=== PATIENT | female | born 1980 | race Hispanic/Latino ===

== ENCOUNTER 2020-02-12 23:08 | Emergency (ER) | payer BC ==
[~2020-02-12 23:08] MED LIST: PNV1TABL17 PO
[2020-02-12] MEDS ORDERED: ONDANSETRON HCL 4 MG/2 ML VIAL ONE (23:24)
[2020-02-12] MEDS ORDERED: MORPHINE SULFATE 4 MG/1ML SYG ONE (23:25)
[2020-02-12 23:47] LABS: BASOPHILS % (AUTO) 0.6 % (0.0-5.0); EOSINOPHILS % (AUTO) 3.1 % (0.0-8.0); LYMPHOCYTES % (AUTO) 32.2 % (21.0-51.0); MEAN CORPUSCULAR HEMOGLOBIN 28.2 pg (27.0-33.0); MEAN CORPUSCULAR HGB CONC 33.5 g/dL (32.0-36.0); MEAN CORPUSCULAR VOLUME 84.2 fL (79-99); MONOCYTES % (AUTO) 6.7 % (3.0-13.0); NEUTROPHILS % (AUTO) 57.1 % (40.0-77.0); PLATELET COUNT (AUTO) 338 K/uL (130-400); RED BLOOD CELL COUNT(AUTO) 4.75 MIL/uL (4.00-5.50); WHITE BLOOD COUNT (AUTO) 13.6 K/uL (4.8-10.8)
[2020-02-12] MEDS ORDERED: MORPHINE SULFATE 2 MG/ML 1ML SYG ONE (23:48)
[2020-02-13] MEDS ORDERED: NEOSTIGMINE 5MG/5ML SYR IV ONE (15:49)
[2020-02-13] MEDS ORDERED: DEXAMETHASONE SOD PHOSPHATE 10MG/ML 1ML VIAL ONE (15:49)
[2020-02-13] MEDS ORDERED: ONDANSETRON HCL 4 MG/2 ML VIAL ONE (15:49)
[2020-02-13] MEDS ORDERED: GLYCOPYRROLATE 1 MG/5 ML SYRINGE ONE (15:49)
[2020-02-13] MEDS ORDERED: LIDOCAINE PF 2% 5ML ABBOJECT ONE (15:49)
[2020-02-13] MEDS ORDERED: MIDAZOLAM HCL 1 MG/ML 2ML VIAL ONE (15:49)
[2020-02-13] MEDS ORDERED: PROPOFOL 10 MG/ML 20ML VIAL IV ONE (15:49)
[2020-02-13] MEDS ORDERED: FENTANYL CITRATE PF 50 MCG/1 ML 2ML VIAL ONE (15:50)
[2020-02-13] MEDS ORDERED: ROCURONIUM 10MG/1ML SYR 10 MG/ML ML ONE (15:50)
== END 2020-02-13 01:11 | disposition home or self-care (01) ==
LOC: EDH 23:08
DX: O20.0 Threatened abortion (principal); Z3A.01 Less than 8 weeks gestation of pregnancy; Z98.890 Other specified postprocedural states
CPT/HCPCS: 36415; 76801; 84702; 85025; 86900; 86901; 96374; 96375; 99284; J1100; J2001; J2250; J2270; J2405 ×2; J2704; J2710; J3010; J3490

== ENCOUNTER 2020-02-13 16:21 | Observation (INO) | payer BC ==
[~2020-02-13] VITALS: Ht 157.5 cm; Wt 72.6 kg
[2020-02-13] VITALS (28 sets, daily range): BP systolic 99–129; BP diastolic 53–72
[2020-02-13] MEDS ORDERED: PHARMACY COMMUNICATION MISC SCH (16:30)
--- NOTE | 2020-02-13 16:45 | NUR ---
PATIENT ARRIVED TO UNIT VIA WHEELCHAIR FROM ER REGISTRATION. CONSENT REVIEWED AND SIGNED.
--- NOTE | 2020-02-13 17:02 | NUR ---
PATIENT TAKEN TO [facility] FOR D&C AND REMOVAL OF CERCLAGE BY [facility].
[2020-02-13 17:09] LABS: HEMATOCRIT 39.7 % (36-48); MEAN CORPUSCULAR HEMOGLOBIN 28.9 pg (27.0-33.0); MEAN CORPUSCULAR HGB CONC 33.2 g/dL (32.0-36.0); MEAN CORPUSCULAR VOLUME 86.9 fL (79-99); RED BLOOD CELL COUNT(AUTO) 4.57 MIL/uL (4.00-5.50); RED CELL DISTRIBUTION WIDTH 13.2 % (11.0-15.5); WHITE BLOOD COUNT (AUTO) 14.4 K/uL (4.8-10.8)
[2020-02-13] MEDS ORDERED: CEFTRIAXONE SODIUM 1 GM ONE ×2 (17:19)
[2020-02-13] MEDS ORDERED: MIDAZOLAM HCL 1 MG/ML 2ML VIAL ONE (17:31)
[2020-02-13] MEDS ORDERED: FENTANYL CITRATE PF 50 MCG/1 ML 2ML VIAL ONE (17:36)
[2020-02-13] MEDS ORDERED: OXYTOCIN 10 USP UNITS/ML ONE (17:47)
--- NOTE | 2020-02-13 17:52 | NUR ---
DR. CASSIDY CALLED AND STATES PATIENT CLEAR TO BE DISCHARGED TONIGHT.
[2020-02-13] MEDS ORDERED: CEFTRIAXONE SODIUM 2 GM VIAL IVP ONE (18:00)
[2020-02-13] MEDS ORDERED: ONDANSETRON HCL 4 MG/2 ML VIAL ONE (19:06)
--- NOTE | 2020-02-13 22:00 | NUR ---
PT. TOLERATED SANDWICH, JUICE AND WATER. DENIED N/V. INST PT TO GET UP WITH ASSIST TO VOID; PT. SAID SHE DID NOT FEEL THE URGE TO URINATE. ALSO C/O HER BOTH LEGS NUMBNESS; SAID SHE WAS ABLE TO FEEL HER FEET ONLY. BLADDER PALPATED AND SOFT TO TOUCH. PULSES ON BOTH FEET SOFT TO TOUCH. Addendum: 02/14/20 at 0102 by RICHIE BARRETT RN RN Amended: Links added.
--- NOTE | 2020-02-13 23:05 | NUR ---
WENT IN TO ASSIST PT. OUT OF BED TO BR, PT URINATED ON THE FLOOR WHILE STANDING . SHAWN PAD AND BED PAD WITH URINE NOTED. PT. UNABLE TO WALK AND ASSIST. BACK IN BED. Addendum: 02/14/20 at 0107 by RICHIE BARRETT RN RN Amended: Links added.
--- NOTE | 2020-02-13 23:40 | NUR ---
PT. STILL UNABL TO AMBULATE WITH ASSIST TO BR; BED SIDE COMMODE OFFERED AND PT. VOIDED IN BSC AND BACK TO BED WITH ASSIST. PT. INST THAT WILL BE NOTIFIED ABOUT HER INABILITY TO AMBULATE. PEDAL PULSES REMAIN STRONG AND PALPABLE. BAND AID TO BACK CLEAN DRY AND INTACT. Addendum: 02/14/20 at 0112 by RICHIE BARRETT RN RN Amended: Links added.
--- NOTE | 2020-02-13 23:50 | NUR ---
DR. PRUITT CALLED AND NOTIFIED OF PT'S BOTH LEGS NUMBNESS AND INABILITY TO AMBULATE; ORDERS NOTED TO KEEP PT. OVERNIGHT. MD ALSO ORDERED PAIN MEDICATION NEEDED. PT. AND SPOUSE NOTIFIED OF MD'S ORDERS. PT. INST TO CALL FOR ASSIST BEFORE GETTING OUT OF BED, VERBALIZED UNDERSTANDING.
[2020-02-14] MEDS ORDERED: ACETAMINOPHEN-CODEINE 300/30MG TAB PO PRN
[2020-02-14 00:07] VITALS: BP 113/68
--- NOTE | 2020-02-14 00:07 | NUR ---
PT. RESTING QUIETLY IN BED, VS REMAIN STABLE. DENIED PAIN AND DISCOMFORT.
[2020-02-14] MEDS: LACTATED RINGERS 1000ML 1,000 ML IV SCH ×2 (00:30→07:37)
[2020-02-14 03:30] VITALS: BP 107/65
[2020-02-14 07:40] VITALS: BP 105/66
--- NOTE | 2020-02-14 09:43 | NUR ---
pt is dismissed in stable condition, brought to private car via wheelchair by Deedee Quinn [employer] tech Addendum: 02/14/20 at 0945 by FIDELINA NICKERSON RN Amended: Links added.
== END 2020-02-14 09:45 | disposition home or self-care (01) ==
LOC: WSH 16:21
DX: O03.87 Sepsis following complete or unspecified spontaneous abortion (principal); A41.9 Sepsis, unspecified organism
CPT/HCPCS: 36415 ×2; 59830; 76801; 84702; 85025; 85027; 86900; 86901; 87070; 87076; 96374; 96375; 99284; A4222; A4223; A4351; G0378 ×9; J0696 ×3; J1100; J2001; J2250 ×2; J2270; J2405 ×3; J2590; J2704; J2710; J3010 ×2; J3490; J7030; J7120

== ENCOUNTER 2023-03-16 02:19 | Observation (INO) | payer BC ==
[~2023-03-16] VITALS: Ht 157.5 cm; Wt 68.5 kg
[2023-03-16 04:00] LABS: APPEARANCE,URINE CLEAR (CLEAR); BILIRUBIN,URINE NEGATIVE (NEGATIVE); COLOR,URINE YELLOW (YELLOW); GLUCOSE, URINE (UA) NEGATIVE (NEGATIVE); KETONES,URINE 40 mg/dL (NEGATIVE); LEUKOCYTE ESTERASE ,URINE NEGATIVE Leu/uL (NEGATIVE); NITRATE,URINE NEGATIVE (NEGATIVE); OCCULT BLOOD,URINE MODERATE (NEGATIVE); PH,URINE 5.5 (5.0-8.0); PROTEIN,URINE 10 mg/dL (NEGATIVE)
[2023-03-16] MEDS ORDERED: LACTATED RINGERS 1000ML 1,000 ML IV ONE (04:00)
[2023-03-16] MEDS ORDERED: ONDANSETRON 4MG INJ IVP ONE (04:00)
[2023-03-16] MEDS ORDERED: MORPHINE 4 MG SYG IVP ONE (04:00)
[2023-03-16 04:07] LABS: HCG,QUALITATIVE URINE NEGATIVE (NEGATIVE); MUCUS,URINE RARE LPF (None Seen); SQUAMOUS EPITHELIAL CELL,UR RARE /HPF (0-2)
[2023-03-16 04:22] LABS: BASOPHILS % (AUTO) 0.3 % (0.0-5.0); EOSINOPHILS % (AUTO) 0.6 % (0.0-8.0); HEMATOCRIT 33.7 % (36-48); MEAN CORPUSCULAR HEMOGLOBIN 28.1 pg (27.0-33.0); MEAN CORPUSCULAR HGB CONC 33.5 g/dL (32.0-36.0); MEAN CORPUSCULAR VOLUME 83.8 fL (79-99); MONOCYTES % (AUTO) 14.2 % (3.0-13.0); PLATELET COUNT (AUTO) 292 K/uL (130-400); RED BLOOD CELL COUNT(AUTO) 4.02 MIL/uL (4.00-5.50); RED CELL DISTRIBUTION WIDTH 13.3 % (11.0-15.5); WHITE BLOOD COUNT (AUTO) 19.8 K/uL (4.8-10.8)
[2023-03-16 04:37] LABS: ALBUMIN 3.4 g/dL (3.5-5.0); CREATININE 0.7 mg/dL (0.5-1.5); POTASSIUM 3.7 mmol/L (3.5-5.1); TOTAL PROTEIN, SERUM 7.3 g/dL (6.0-8.3)
[2023-03-16] MEDS ORDERED: IOHEXOL-350 75 ML VIAL IV ONE (05:10)
[2023-03-16] MEDS ORDERED: KETOROLAC 30MG VIAL (30MG/ML) IVP ONE (06:00)
[2023-03-16 06:09] LABS: INR 1.05 (0.85-1.15); PROTHROMBIN TIME 11.4 SEC (9.6-11.6)
[2023-03-16 06:10] LABS: PARTIAL THROMBOPLASTIN TIME 38.8 SEC (26.3-35.5)
[2023-03-16] MEDS ORDERED: CIPR500T10 PO (09:06)
[2023-03-16] MEDS ORDERED: CEFTRIAXONE 2GM VIAL IVPB ONE (09:30)
[2023-03-16] MEDS ORDERED: CEFTRIAXONE 1G VIAL IVPB SCH (09:30)
[2023-03-16] MEDS ORDERED: ACETAMINOPHEN 325 MG TAB PO PRN (09:30)
[2023-03-16] MEDS ORDERED: ONDANSETRON 4MG INJ IVP PRN (09:30)
[2023-03-16] MEDS: 0.9%NACL 1000ML 1,000 ML IV SCH (10:16)
[2023-03-16] MEDS: KETOROLAC 15MG/ML VIAL (15MG/ML) IV PRN (19:01)
[2023-03-16 19:02] VITALS: BP 116/73
[2023-03-16] MEDS: FAMOTIDINE 20MG TAB PO SCH (21:02)
[2023-03-16 22:30] VITALS: BP 102/57
[2023-03-17] VITALS (10 sets, daily range): BP systolic 113–152; BP diastolic 70–103
[2023-03-17] MEDS: ACETAMINOPHEN 325 MG TAB PO PRN ×2 (00:28→15:16)
[2023-03-17] MEDS: 0.9%NACL 1000ML 1,000 ML IV SCH ×2 (01:03→18:01)
[2023-03-17 06:44] LABS: BASOPHILS % (AUTO) 0.4 % (0.0-5.0); HEMATOCRIT 27.8 % (36-48); LYMPHOCYTES % (AUTO) 25.1 % (21.0-51.0); MEAN CORPUSCULAR HEMOGLOBIN 28.1 pg (27.0-33.0); MEAN CORPUSCULAR HGB CONC 32.7 g/dL (32.0-36.0); MEAN CORPUSCULAR VOLUME 85.8 fL (79-99); MONOCYTES % (AUTO) 8.8 % (3.0-13.0); NEUTROPHILS % (AUTO) 63.2 % (40.0-77.0); PLATELET COUNT (AUTO) 251 K/uL (130-400); RED BLOOD CELL COUNT(AUTO) 3.24 MIL/uL (4.00-5.50); RED CELL DISTRIBUTION WIDTH 13.9 % (11.0-15.5); WHITE BLOOD COUNT (AUTO) 9.9 K/uL (4.8-10.8)
[2023-03-17 07:23] LABS: ALBUMIN 2.4 g/dL (3.5-5.0); CREATININE 0.7 mg/dL (0.5-1.5); POTASSIUM 3.4 mmol/L (3.5-5.1); TOTAL PROTEIN, SERUM 6.3 g/dL (6.0-8.3)
[2023-03-17] MEDS ORDERED: MORPHINE 2 MG SYG IVP PRN (07:30)
[2023-03-17] MEDS ORDERED: CEFTRIAXONE 1G VIAL 1 GM in 0.9%NACL 50ML 50 ML IV SCH (09:00)
[2023-03-17] MEDS: SIMETHICONE 80 MG TAB.CHEW PO PRN ×2 (09:22→20:59)
[2023-03-17] MEDS: CEFTRIAXONE 2GM VIAL IVPB SCH (09:22)
[2023-03-17] MEDS: FAMOTIDINE 20MG TAB PO SCH ×2 (09:23→20:59)
[2023-03-17] MEDS: DOCUSATE SODIUM 100 MG CAP PO SCH ×2 (09:23→20:59)
[2023-03-17] MEDS: BISACODYL 10 MG SUPP.RECT RC PRN (09:25)
[2023-03-17] MEDS: KETOROLAC 15MG/ML VIAL (15MG/ML) IV PRN (11:14)
[2023-03-18] MEDS ORDERED: LACTULOSE 20 GM/30 ML UDCUP PO ONE
[2023-03-18 00:18] VITALS: BP 153/99
[2023-03-18] MEDS ORDERED: FUROSEMIDE 20 MG TABLET PO ONE (00:30)
[2023-03-18] MEDS ORDERED: LORAZEPAM 1 MG TABLET PO ONE (00:30)
[2023-03-18 00:48] VITALS: BP 145/96
[2023-03-18] MEDS: 0.9%NACL 1000ML 1,000 ML IV SCH (01:30)
[2023-03-18 03:42] VITALS: BP 139/82
[2023-03-18 04:03] LABS: BASOPHILS % (AUTO) 0.5 % (0.0-5.0); EOSINOPHILS % (AUTO) 2.2 % (0.0-8.0); HEMATOCRIT 28.3 % (36-48); MEAN CORPUSCULAR HEMOGLOBIN 27.9 pg (27.0-33.0); MEAN CORPUSCULAR HGB CONC 32.5 g/dL (32.0-36.0); MEAN CORPUSCULAR VOLUME 85.8 fL (79-99); MONOCYTES % (AUTO) 8.2 % (3.0-13.0); NEUTROPHILS % (AUTO) 61.3 % (40.0-77.0); PLATELET COUNT (AUTO) 307 K/uL (130-400); RED CELL DISTRIBUTION WIDTH 13.8 % (11.0-15.5); WHITE BLOOD COUNT (AUTO) 9.8 K/uL (4.8-10.8)
[2023-03-18 04:15] LABS: ALBUMIN 2.8 g/dL (3.5-5.0); CREATININE 0.7 mg/dL (0.5-1.5); POTASSIUM 3.5 mmol/L (3.5-5.1); TOTAL PROTEIN, SERUM 6.9 g/dL (6.0-8.3)
[2023-03-18] MEDS: ACETAMINOPHEN 325 MG TAB PO PRN (07:39)
[2023-03-18 07:45] VITALS: BP 146/91
[2023-03-18] MEDS: CEFTRIAXONE 2GM VIAL IVPB SCH (08:50)
[2023-03-18] MEDS: FAMOTIDINE 20MG TAB PO SCH (08:50)
[2023-03-18] MEDS: DOCUSATE SODIUM 100 MG CAP PO SCH (08:50)
[2023-03-18] MEDS: BISACODYL 10 MG SUPP.RECT RC PRN (08:50)
[2023-03-18 11:42] VITALS: BP 120/73
[2023-03-18 15:52] VITALS: BP 137/94
== END 2023-03-18 16:55 | disposition home or self-care (01) ==
LOC: EDH 02:19 → INTOOBSV 09:06 → EDHIP 09:06 → WSH 17:10
PROVIDERS: ADMIT Hospitalist; ATTEND Hospitalist
DX: N12 Tubulo-interstitial nephritis, not specified as acute or chronic (principal); N39.0 Urinary tract infection, site not specified; E87.1 Hypo-osmolality and hyponatremia; E87.8 Other disorders of electrolyte and fluid balance, not elsewhere classified; D72.829 Elevated white blood cell count, unspecified; K59.00 Constipation, unspecified; Z90.49 Acquired absence of other specified parts of digestive tract; Z79.899 Other long term (current) drug therapy
CPT/HCPCS: 96376 ×2; 96361 ×3; 96365; 96375; 99285; 82550; 84484 ×2; 80053 ×3; 85025 ×3; 85610; 85730; 87040 ×2; 87088; 83605; 81001; 81025; 36415 ×3; 71045; 74177; 76705; 96366 ×2; J7120; J7030; J0696 ×3; J2405; J2270; J1885 ×3; Q9967; G0378 ×3